=== PATIENT | male | born 1955 | race Caucasian/White ===

== ENCOUNTER 2019-03-09 15:21 | Emergency (ER) | payer MEDICARE, OTHER ==
[2019-03-09 15:50] VITALS: BP 149/81
--- NOTE | 2019-03-09 16:02 | ED Physician Documentation ---
History of Present Illness - Stated complaint Stated Complaint: GLF / LT ANKLE INJURY - Chief complaint Chief Complaint: Ext Problem - Additonal information Additional information: This is a 64-year-old male presents with left ankle pain. Patient was working on [place] metal [place] when the power toppled over causing him to land backwards and he thinks he inverted his ankle. He was able to walk on it but if he moves his ankle to the right or left he has significant pain in the region. No numbness or weakness. He has noticed some swelling over the lateral malleolus. Review of Systems Skin: denies: Laceration (s) Musculoskeletal: reports: Joint pain PD PAST MEDICAL HISTORY - Allergies Allergies/Adverse Reactions: Allergies Allergy/AdvReac Type Severity Reaction Status Date / Time No Known Drug Allergies Allergy Verified 03/09/19 15:32 PD ED PE NORMAL - Vitals Vital signs reviewed: Yes - General General: Alert and oriented X 3, No acute distress - HEENT HEENT: Atraumatic - Cardiac Cardiac: Strong equal pulses - Extremities Extremities: Other (There is edema over the lateral malleolus, point tenderness in this region. Sensation is intact to light touch over the entire extremity, patient is able to dorsiflex and plantarflex his ankle. Capillary refill is brisk. There is no proximal tibiofibular discomfort/tenderness, there is no forefoot tenderness palpation.) - Neuro Neuro: Alert and oriented X 3 - Psych Psych: Normal mood, Normal affect Results - Vitals Vitals: Oxygen O2 Source Room air PD MEDICAL DECISION MAKING - ED course ED course: XR shows a potential non-displaced fibular fracture, given pt's pain we will treat clinically as a distal fibula fracture with walking boot and crutches. I discussed that if he is having any pain with bearing weight he should be non- weight bearing and use the crutches. He will follow up with orthopedics or PCP in 1 week for re-evaluation and repeat XR. Patient agrees with this plan, I reviewed return precautions, and he was discharged home in a boot with crutches. Departure - Departure Disposition: 01 Home, Self Care Clinical Impression: Ankle pain, left Qualifiers: Chronicity: acute Qualified Code(s): M25.572 - Pain in left ankle and joints of left foot Condition: Good Comments: You were seen today for left ankle pain. Your x-ray shows a possible fracture over the left distal fibula. Given that you have swelling and tenderness in this region, we will assume it is fractured and treat with a walking boot. You may remove the walking boot to shower. Please ice your ankle 4 times a day for at least the next 48 hours, and you may take Tylenol and ibuprofen for pain. Please follow-up with your primary care provider or orthopedist in 1 week, you will likely need repeat x-rays at that time to better distinguish whether this is truly broken or not. If you are having increasing pain or difficulty walking, you may use crutches and not bear weight on that foot. You may take ibuprofen 600 mg every 6 hours as needed for pain, and Tylenol 650 mg every 6 hours as needed for pain. Discharge Date/Time: 03/09/19 17:45
--- NOTE | 2019-03-09 16:42 | XRAY Report ---
Reason: L ankle pain, swelling Procedure Date: 03/09/2019 Accession Number: [id number] / [id number] Procedure: XR - Ankle 3 View LT CPT Code: FULL RESULT: EXAM: LEFT ANKLE RADIOGRAPHY EXAM DATE: 03/09/2019 03:53 PM. CLINICAL HISTORY: L ankle pain, swelling. COMPARISON: None. TECHNIQUE: 3 views. FINDINGS: Bones: There is cortical irregularity of the distal fibula on AP view without clear correlate on additional views. Joints: No evidence of dislocation. Soft Tissues: No unexpected soft tissue findings. IMPRESSION: 1. There is cortical irregularity of the distal fibula on frontal view at the level of the syndesmosis. Differential considerations include the fracture or artifact secondary to overlapping bone. No evidence of medial or posterior malleolar fractures. If there is high clinical concern for distal fibular fracture, CT could be used for further evaluation. 2. There is lateral ankle soft tissue swelling. 3. There is no evidence of dislocation. RADIA
[2019-03-09] MEDS ORDERED: ACETAMINOPHEN 325 MG TABLET PO STA (17:10)
[2019-03-09] MEDS ORDERED: IBUPROFEN 600 MG TABLET PO STA (17:10)
== END 2019-03-09 17:45 | disposition home or self-care (01) ==
LOC: ED 15:21
DX: M25.572 Pain in left ankle and joints of left foot (principal); M25.472 Effusion, left ankle
CPT/HCPCS: 73610; 99282; 99283; A9270

== ENCOUNTER 2021-10-28 18:26 | Emergency (ER) | payer MEDICARE, OTHER ==
[2021-10-28] MEDS ORDERED: SODIUM CHLORIDE 0.9% 1,000 ML IV STA (18:40)
--- NOTE | 2021-10-28 18:43 | ED Physician Documentation ---
PD HPI ALTERED MENTAL STATUS - Stated complaint Stated Complaint: AMS - Chief complaint Chief Complaint: Neuro - History obtained from History obtained from: Patient, Family - History of Present Illness Timing - onset: Unknown (last seen normal about 1pm) Quality / character: Confused, Disoriented, Memory Loss Associated symptoms: Cough (for the past 1 week, negative covid tests). No: Fever, Headache, Stiff neck, Dyspnea Contributing factors: Diabetic, Recent illness (cough x 1 week). No: Anticoagulated, COPD, New medication, Recent med change, Recent injury, Intoxicated, Substance abuse, Known psych illness, Known dementia Basline status: Alert and oriented X 3 Similar symptoms before: Has not had sx before - Additional information Additional information: states that she last saw him at about 1 PM today. This was about 5-1/2 hours prior to arrival. She states she has been out in the yard all day in the sunshine digging a [place] drain. She states he has not eaten or drink anything this afternoon. She noticed him confused when he came back in the house. No focal neurological deficits. No slurred speech. Seems to have more issue with the recent memories. He is able to recall who his is, his date of and his full name. Review of Systems Unable to obtain: AMS Constitutional: denies: Fever, Chills Ears: denies: Ear pain Nose: denies: Rhinorrhea / runny nose, Congestion Throat: denies: Sore throat Cardiac: denies: Chest pain / pressure, Palpitations Respiratory: reports: Cough (multiple negative covid tests) GI: denies: Abdominal Pain, Vomiting, Diarrhea : denies: Dysuria Skin: denies: Rash Musculoskeletal: denies: Neck pain, Back pain Neurologic: denies: Headache PD PAST MEDICAL HISTORY - Past Medical History Cardiovascular: Hypertension, High cholesterol Endocrine/Autoimmune: Type 2 diabetes - Past Surgical History Past Surgical History: No - Allergies Allergies/Adverse Reactions: Allergies Allergy/AdvReac Type Severity Reaction Status Date / Time No Known Drug Allergies Allergy Verified 10/28/21 18:43 - Social History Does the pt smoke?: No Smoking Status: Former smoker Does the pt drink ETOH?: Yes Does the pt have substance abuse?: No - Immunizations Immunizations are current?: Yes - POLST Patient has POLST: No PD ED PE NORMAL - Vitals Vital signs reviewed: Yes - General General: Alert and oriented X 3, No acute distress - HEENT HEENT: Atraumatic, PERRL, Ears normal, Moist mucous membranes, Pharynx benign - Neck Neck: Supple, no meningeal sign, No bony TTP - Cardiac Cardiac: RRR, Strong equal pulses - Respiratory Respiratory: No respiratory distress, Clear bilaterally - Abdomen Abdomen: Soft, Non tender, Non distended - Back Back: No spinal TTP - Derm Derm: Warm and dry, No rash - Extremities Extremities: No deformity, Normal ROM s pain, No edema, No calf tenderness / cord - Neuro Neuro: billboard poster 2-12 intact, No motor deficit, No sensory deficit, Normal speech, Other (Alert and oriented to person only. Confused to place and time) Eye Opening: Spontaneous Motor: Obeys Commands Verbal: Confused GCS Score: 14 - Psych Psych: Normal mood, Normal affect NIHSS - Time Time: 18:40 - Level of Consciousness Level of consciousness: (0) Alert, Keenly responsive LOC Questions: (2) Answers neither correct LOC Commands: (0) Performs both correctly - Gaze Best Gaze: (0) Normal - Visual Visual: (0) No loss - Facial Palsy Facial Palsy: (0) Normal, symmetrical movement - Motor Arms (both separate) Motor Arm (right): (0) No drift Motor Arm (left): (0) No drift - Motor Legs (both separate) Motor Leg (right): (0) No drift Motor Leg (left): (0) No drift - Limb Ataxia Limb Ataxia: (0) Absent - Sensory Sensory: (0) Normal - Best Language Best Language: (0) No aphasia - Dysarthria Dysarthria: (0) Normal - Extinction and Inattention (formally neg Extinction and inattention: (0) No abnormality - Total Score/Results Total Score/Result: 2 Results - Vitals Vitals: Vital Signs - 24 hr 10/28/21 10/28/21 10/28/21 18:29 18:43 19:13 Temperature 37.1 C 37.1 C Heart Rate 92 92 92 Respiratory 14 14 14 Rate Blood Pressure 152/78 H 152/78 H 152/78 H O2 Saturation 96 96 96 10/28/21 10/28/21 10/28/21 19:30 20:00 20:30 Temperature Heart Rate 80 80 94 Respiratory 18 18 15 Rate Blood Pressure 149/74 H 149/74 H 151/65 H O2 Saturation 100 100 99 10/28/21 21:05 Temperature 37 C Heart Rate 93 Respiratory 16 Rate Blood Pressure 150/62 H O2 Saturation 99 Oxygen O2 Source Room air - Labs Labs: Laboratory Tests 10/28/21 10/28/21 10/28/21 18:50 18:50 18:50 WBC 9.1 RBC 4.54 L Hgb 14.0 Hct 41.4 L MCV 91.2 MCH 30.8 MCHC 33.8 RDW 11.9 L Plt Count 290 MPV 8.7 Neut # (Auto) 7.7 H Lymph # (Auto) 0.9 L [place] # (Auto) 0.3 Eos # (Auto) 0.0 Baso # (Auto) 0.0 Absolute Nucleated RBC 0.00 Nucleated RBC % 0.0 Sodium 140 Potassium 3.9 Chloride 103 Carbon Dioxide 24 Anion Gap 13.0 BUN 28 H Creatinine 1.8 H Estimated GFR (MDRD) 38 L Glucose 131 H Calcium 9.8 Phosphorus 2.3 L Magnesium 1.4 L Total Bilirubin 1.0 AST 18 ALT 22 Alkaline Phosphatase 58 Total Creatine Kinase 157 Troponin I High Sens Total Protein 7.7 Albumin 4.5 Globulin 3.2 Albumin/Globulin Ratio 1.4 Lipase 38 TSH 1.15 Urine Color Urine Clarity Urine pH Ur Specific Cass Urine Protein Urine Glucose (UA) Urine Ketones Urine Occult Blood Urine Nitrite Urine Bilirubin Urine Urobilinogen Ur Leukocyte Esterase Ur Microscopic Review Urine Culture Comments Salicylates < 6.0 Urine Opiates Screen Ur Oxycodone Screen Urine Methadone Screen Ur Propoxyphene Screen Acetaminophen < 10 L Ur Barbiturates Screen Ur Tricyclics Screen Ur Phencyclidine Scrn Ur Amphetamine Screen U Methamphetamines Scrn U Benzodiazepines Scrn Urine Cocaine Screen U Cannabinoids Screen Ethyl Alcohol < 5.0 10/28/21 10/28/21 18:50 19:05 WBC RBC Hgb Hct MCV MCH MCHC RDW Plt Count MPV Neut # (Auto) Lymph # (Auto) [place] # (Auto) Eos # (Auto) Baso # (Auto) Absolute Nucleated RBC Nucleated RBC % Sodium Potassium Chloride Carbon Dioxide Anion Gap BUN Creatinine Estimated GFR (MDRD) Glucose Calcium Phosphorus Magnesium Total Bilirubin AST ALT Alkaline Phosphatase Total Creatine Kinase Troponin I High Sens 9.7 Total Protein Albumin Globulin Albumin/Globulin Ratio Lipase TSH Urine Color YELLOW Urine Clarity CLEAR Urine pH 5.5 Ur Specific Cass >=1.030 H Urine Protein TRACE Urine Glucose (UA) NEGATIVE Urine Ketones TRACE Urine Occult Blood NEGATIVE Urine Nitrite NEGATIVE Urine Bilirubin NEGATIVE Urine Urobilinogen 0.2 (NORMAL) Ur Leukocyte Esterase NEGATIVE Ur Microscopic Review NOT INDICATED Urine Culture Comments NOT INDICATED Salicylates Urine Opiates Screen NEGATIVE Ur Oxycodone Screen NEGATIVE Urine Methadone Screen NEGATIVE Ur Propoxyphene Screen NEGATIVE Acetaminophen Ur Barbiturates Screen NEGATIVE Ur Tricyclics Screen NEGATIVE Ur Phencyclidine Scrn NEGATIVE Ur Amphetamine Screen NEGATIVE U Methamphetamines Scrn NEGATIVE U Benzodiazepines Scrn NEGATIVE Urine Cocaine Screen NEGATIVE U Cannabinoids Screen NEGATIVE Ethyl Alcohol - Rads (name of study) head CT Radiology: Final report received, EMP read contemporaneously, See rad report (IMPRESSION: No acute intracranial abnormalities. ) PD MEDICAL DECISION MAKING - ED course Complexity details: reviewed results, re-evaluated patient, considered differential, d/w patient, d/w family, d/w senior wind energy consultant ED course: 66-year-old male with altered mental status. Appears to be having difficulty forming new memories but long-term memory appears intact. No focal neurological deficits. NIH stroke scale of 2. Mild repetitive questioning. Head CT does not show any acute abnormalities. Laboratory testing has renal insufficiency as well as hypomagnesemia. IV fluids and magnesium given. Patient was reassessed at 1930. He is alert and oriented x3. Symptoms have nearly fully resolved. He is having a little trouble describing what he was doing this afternoon, dating a friend strain, but overall seems much improved. Patient continues to improve in the emergency department appears to be close to his normal baseline. Discussed observation in the hospital for MRI/MRA and potential echocardiogram in the morning. Patient and his do not want to stay in the hospital. They also do not want us to give him aspirin here, but states that they will give him aspirin at home. I recommend that they follow-up closely with his doctor tomorrow to have an outpatient MRI/MRA of the brain and neck ordered tomorrow. The patient is welcome to return at any time should he change his mind and the patient and his both state full understanding of this. Patient and family counseled regarding signs and symptoms for which I believe and urgent re-evaluation would be necessary. Patient with good understanding of and agreement to plan and is comfortable going home at this time This document was made in part using voice recognition software. While efforts are made to proofread this document, sound alike and grammatical errors may occur. Departure - Departure Disposition: 01 Home, Self Care Clinical Impression: Altered mental status Qualifiers: Altered mental status type: unspecified Qualified Code(s): R41.82 - Altered mental status, unspecified Condition: Good Instructions: ED Confusion Follow-Up: STEF HERNÁNDEZ MD [Primary Care Provider] - Tomorrow Comments: Your head CT does not show any acute abnormalities today. Your laboratory testing shows a mild renal insufficiency, your creatinine is 1.8, we do not have any old blood work to know what your baseline creatinine is but this should be rechecked with your doctor. Your magnesium is also low at 1.4. This was replaced in the emergency department. Your mental status is seemingly returning to baseline. Your speech is clear. We did discuss staying in the hospital tonight, but you have decided to go home. Please take an aspirin, 325 mg by mouth when you return home tonight. You have declined to take this in the emergency department. It is important that you have an MRI of your brain this week. Your doctor can order this tomorrow. If your symptoms worsen or recur, please return immediately for further evaluation. You should also have imaging performed of your carotid arteries, your doctor may want to order an ultrasound for this or a MRA. Your doctor may also want to order an echocardiogram, this is an ultrasound of your heart. Return if you worsen. Discharge Date/Time: 10/28/21 21:06
[2021-10-28 18:59] LABS: BASOPHILS % (AUTO) 0.3 %; EOSINOPHILS % (AUTO) 0.1 %; HCT - HEMATOCRIT 41.4 % (42.0-52.0); LYMPHOCYTES # (AUTO) 0.9 10^3/uL (1.5-3.5); LYMPHOCYTES % (AUTO) 9.9 %; MEAN CORPUSCULAR HEMOGLOBIN 30.8 pg (27.0-31.0); MEAN CORPUSCULAR HGB CONC 33.8 g/dL (32.0-36.0); MEAN CORPUSCULAR VOLUME 91.2 fL (80.0-94.0); MEAN PLATELET VOLUME 8.7 fL (7.4-11.4); MONOCYTES # (AUTO) 0.3 10^3/uL (0.0-1.0); MONOCYTES % (AUTO) 3.8 %; NEUTROPHILS # (AUTO) 7.7 10^3/uL (1.5-6.6); NEUTROPHILS % (AUTO) 85.5 %; PLT - PLATELET COUNT 290 10^3/uL (130-450); RED BLOOD COUNT 4.54 10^6/uL (4.70-6.10); RED CELL DISTRIBUTION WIDTH 11.9 % (12.0-15.0); WHITE BLOOD COUNT 9.1 x10^3/uL (4.8-10.8)
[2021-10-28 19:11] LABS: ACETAMINOPHEN < 10 ug/mL (10-30); ALBUMIN 4.5 g/dL (3.2-5.5); ALBUMIN/GLOBULIN RATIO 1.4 (1.0-2.2); ALKALINE PHOSPHATASE 58 IU/L (42-121); ALT ALANINE AMINOTRANSFERASE 22 IU/L (10-60); AST ASPARTATE AMINOTRANSFERASE 18 IU/L (10-42); BUN - BLOOD UREA NITROGEN 28 mg/dL (6-20); CALCIUM 9.8 mg/dL (8.5-10.3); CARBON DIOXIDE - CO2 24 mmol/L (21-32); CHLORIDE 103 mmol/L (101-111); CK- CREATINE KINASE 157 IU/L (22-269); CREATININE 1.8 mg/dL (0.6-1.2); ETOH - ETHANOL < 5.0 mg/dL; GFR - MDRD 38 (>89); GLUCOSE 131 mg/dL (70-100); LIPASE 38 U/L (22-51); MAGNESIUM 1.4 mg/dL (1.7-2.8); PHOSPHORUS 2.3 mg/dL (2.5-4.6); POTASSIUM 3.9 mmol/L (3.5-5.0); SALICYLATE < 6.0 mg/dL; SODIUM 140 mmol/L (135-145); TOTAL PROTEIN 7.7 g/dL (6.7-8.2)
[2021-10-28 19:12] LABS: MUDS CUTOFF CONCENTRATIONS CUTOFF CONC BELOW:
[2021-10-28 19:17] LABS: BILIRUBIN,URINE NEGATIVE (NEGATIVE); GLUCOSE, URINE (UA) NEGATIVE (NEGATIVE); KETONES,URINE (UA) TRACE mg/dL (NEGATIVE); LEUKOCYTE ESTERASE, URINE NEGATIVE (NEGATIVE); NITRITE,URINE NEGATIVE (NEGATIVE); OCCULT BLOOD,URINE NEGATIVE (NEGATIVE); PH,URINE 5.5 PH (5.0-7.5); PROTEIN,URINE TRACE mg/dL (NEGATIVE); UROBILINOGEN,URINE 0.2 (NORMAL) E.U./dL (NORMAL)
[2021-10-28] MEDS ORDERED: MAGNESIUM SULFATE 2 GRAM 2 GM/50 ML BAG IV ONE (19:17)
[2021-10-28 19:19] LABS: CLARITY,URINE CLEAR (CLEAR)
[2021-10-28 19:28] LABS: COCAINE SCREEN URINE NEGATIVE (NEGATIVE); METHAMPHETAMINES SCREEN, URINE NEGATIVE (NEGATIVE); THC CANNABINOID SCREEN, URINE NEGATIVE (NEGATIVE)
[2021-10-28 19:29] LABS: AMPHETAMINE SCREEN,URINE NEGATIVE (NEGATIVE); BARBITURATE SCREEN,UR NEGATIVE (NEGATIVE); BENZODIAZEPINES SCREEN, URINE NEGATIVE (NEGATIVE); METHADONE SCREEN, URINE NEGATIVE (NEGATIVE); OPIATE SCREEN, URINE NEGATIVE (NEGATIVE); OXYCODONE SCREEN, URINE NEGATIVE (NEGATIVE); PROPOXYPHENE SCREEN, URINE NEGATIVE (NEGATIVE); TRICYCLIC ANTIDEPRESSANT,URINE NEGATIVE (NEGATIVE)
--- NOTE | 2021-10-28 19:36 | CT Report ---
PROCEDURE: HEAD WO INDICATIONS: altered mental status TECHNIQUE: Noncontrast 4.5 mm thick angled axial sections acquired from the foramen magnum to the vertex. For r adiation dose reduction, the following was used: automated exposure control, adjustment of mA and/or kV according to patient size. COMPARISON: None. FINDINGS: Image quality: Excellent. CSF spaces: Basal cisterns are patent. No extra-axial fluid collections. Ventricles are normal in size and shape. Brain: No midline shift. No intracranial masses or hemorrhage. Marsh-white matter interface is norm al. Skull and face: Calvarium and visualized facial bones are intact, without suspicious lesions. Sinuses: Visualized sinuses and mastoids are clear. IMPRESSION: No acute intracranial abnormalities. Reviewed by: Dolores Monterroso MD on 10/28/2021 7:35 PM PDT Approved by: Dolores Monterroso MD on 10/28/2021 7:35 PM PDT Station ID: [id number]
[2021-10-28 21:06] VITALS: BP 150/62
== END 2021-10-28 21:06 | disposition home or self-care (01) ==
LOC: ED 18:26
DX: Z87.891 Personal history of nicotine dependence (principal); N28.9 Disorder of kidney and ureter, unspecified; E83.42 Hypomagnesemia; R41.82 Altered mental status, unspecified; R79.89 Other specified abnormal findings of blood chemistry
CPT/HCPCS: 36415; 70450; 80053; 80306; 80307; 81003; 82550; 83690; 83735; 84100; 84443; 84484; 85025; 93005; 96374; 99284; G0480; 80320; 80329; 81001; 87086